=== PATIENT | male | born 1940 | race African-American/Black ===

== ENCOUNTER 2025-03-23 05:43 | Emergency (ER) | payer OTHER ==
[~2025-03-23] VITALS: Ht 177.8 cm; Wt 105.0 kg
[2025-03-23 05:47] VITALS: TEMP 36.9; O2SAT 98
[2025-03-23] MEDS: IBUPROFEN 400MG TABLET PO ONE (06:14)
[2025-03-23] MEDS ORDERED: TOPUD PO (06:42)
[2025-03-23 07:11] VITALS: BP 144/66; PULSE 57; RESP 14; O2SAT 100
== END 2025-03-23 07:12 | disposition home or self-care (01) ==
LOC: ER 05:43
DX: M25.521 Pain in right elbow (principal); I10 Essential (primary) hypertension; Z79.899 Other long term (current) drug therapy
CPT/HCPCS: 73070; 99283; A4565